=== PATIENT | male | born 1985 | race Two or more races ===

== ENCOUNTER → 2022-12-02 | Emergency (ER) | payer OTHER ==
[~2022-12-02] VITALS: Ht 172.7 cm; Wt 83.5 kg
[~2022-12-02] MED LIST: BACTRIM 400-801 EACH PO; OMEPRAZOLE MAGN20 MG PO; PEPCID AC20 MG PO
== END | disposition home or self-care (01) ==
LOC: ER 10:54
DX: R30.0 Dysuria (principal); R36.1 Hematospermia